=== PATIENT | male | born 1960 | race Caucasian/White ===

== ENCOUNTER 2017-01-03 12:58 | Inpatient (IN) | payer BC ==
--- NOTE | ~2017-01-03 | DS ---
Discharge Summary [facility] [place] [address] [place]. [address] NAME: NEW SERNA : 58 STATUS : DIS IN PAT#: [id number] AGE: 56 ADM/REG DATE : 01/03/17 MR#: [id number] REPORT SERV DATE: 01/07/17 DICTATED BY: ULICES RIVERA DATE: 01/06/17 REPORT STATUS : Draft TRANSCRIBED BY: MODL DATE: 01/06/17 ADMISSION DATE: 01/03/2017 DISCHARGE DATE: 01/06/2017 DISCHARGE DIAGNOSES: 1. Acute urinary retention, now with a Griffin catheter, to be followed up by Dr. Henderson in the outpatient setting. 2. Urinary tract infection with resistant Pseudomonas to fluoroquinolones. He will need a total of 14 days of IV Zosyn started on 01/03/2017. 3. Acute kidney injury due to obstructive uropathy, currently improving after placement of the Grififn catheter and hydration. 4. Hypertension, currently stable. 5. Hypothyroidism. 6. Generalized debility, will need rehab in the outpatient setting. 7. Type 2 diabetes mellitus, currently only using sliding scale. I would avoid use of metformin in this patient with acute renal failure. 8. Hyperlipidemia. 9. Diabetic neuropathy. 10.Obesity. 11.Neurogenic bladder. 12.History of prior cerebrovascular accident. 13.Degenerative joint disease with osteoarthritis. 14.Obesity. CONSULTANTS DURING THIS HOSPITALIZATION: 1. Keaton Rolon M.D. of Nephrology. 2. Pk Gold M.D. of Infectious Disease. INVASIVE PROCEDURES DONE DURING THIS HOSPITALIZATION: None. BRIEF HISTORY OF PRESENT ILLNESS: The patient is a 56-year-old gentleman with multiple comorbidities, followed by Dr. Tobias Rosario, presented to the hospital with weakness, fall, and difficulty walking, so he was admitted. For detailed history and physical exam, please see note dictated by Dr. Deja Lewis on 01/03/2017. HOSPITAL COURSE: After being admitted to the hospital, this patient was thought to have urinary tract infection, so he was started on broad-spectrum antibiotic, i.e., Zosyn. This patient had significant urinary retention and his creatinine was elevated up to 5.5. Nephrology was consulted. This was thought to be obstructive uropathy. A Griffin catheter was placed. Due to trauma, he has had some mild hematuria, but otherwise, he has had good urine output. He was given copious amounts of hydration and his creatinine today is down to 3.5 with improving BUN. Nephrology believes that this was just due to obstruction, so he should continue to improve. We discontinued his RAMU inhibitor and his metformin in light of renal failure. This patient had persistent urinary retention and this probably is the cause of recurrent urinary tract infection, so it is decided that we will leave the Griffin catheter in and the patient will be placed on Flomax and then follow up with Dr. Justus Henderson in Discharge Summary [place] [id number] [facility] [place]. [address] NAME: NEW SERNA : 58 STATUS : DIS IN PAT#: [id number] AGE: 56 ADM/REG DATE : 01/03/17 MR#: [id number] REPORT SERV DATE: 01/07/17 DICTATED BY: ULICES RIVERA DATE: 01/06/17 REPORT STATUS : Draft TRANSCRIBED BY: KEIKO DATE: 01/06/17 the outpatient setting. His urine culture has revealed Pseudomonas, that is resistant to fluoroquinolones and it is decided that he will need 14 days of IV Zosyn, which he will continue in the [facility] and rehab setting. A PICC line will be placed prior to that. This patient remained stable, otherwise, medically and is being discharged in stable condition to rehab. DISCHARGE DISPOSITION: To rehab. DISCHARGE ACTIVITY: Per facility. DISCHARGE DIET: Low sodium, 1800-calorie [employer] diet. DISCHARGE MEDICATIONS: Coreg 6.25 mg p.o. twice daily; gabapentin 300 mg three times daily; levothyroxine 50 mcg once daily; simvastatin 20 mg once daily; Zosyn 3.375 g IV q.12 extended release for a total of 14 days, to be stopped on 01/17/2017; sodium bicarb 650 mg p.o. twice daily; Flomax 0.4 mg p.o. once daily; and baclofen 10 mg p.o. three times daily. DISCHARGE FOLLOWUP: With Nephrology post rehab, with Dr. Caicedo post rehab, with Dr. Tobias Rosario post rehab. More than 35 minutes spent planning this patient's discharge, reconciling medications, arranging rehab and documenting this discharge. CHESTER/KEIKO Ulices Rivera M.D. / [id number] CC: Ulices Rivera M.D. [facility]
--- NOTE | ~2017-01-03 | CN ---
Consultation Report [facility] [address] [place]. [address] NAME: NEW SERNA : 58 STATUS : ADM IN PAT#: [id number] AGE: 56 ADM/REG DATE : 01/03/17 MR#: [id number] REPORT SERV DATE: 01/04/17 DICTATED BY: NIKI ROLON DATE: 01/04/17 REPORT STATUS : Draft TRANSCRIBED BY: MODL DATE: 01/04/17 DATE OF CONSULTATION: REASON FOR CONSULTATION: Elevation in BUN and creatinine. ASSESSMENT: Acute on chronic kidney disease in a patient with history of neurogenic bladder, noncompliance with straight catheterizations, and creatinine now presenting with a value of 4.9, down to 4.43 today with catheterization. Baseline creatinine had been in the mid to upper 3s during previous consultations last year. I suspect he has some component of acute injury related to his UTI and urinary retention from his noncompliance, however, he may also have progression of disease now with chronic obstructive uropathy that is progressively worsening. PLAN: 1. Continue IV fluids for another 24 hours to see if he has a volume depletion component with declining kidney function. 2. Renal diet. 3. Serial labs. 4. Obtain records from Dr. Henderson's office to see whether there are any issues as to why he should not be straight catheterizing himself at this present time. Because the patient is adamant, he was advised that he can use condom catheters rather than straight cath himself. HISTORY OF PRESENT ILLNESS: A 56-year-old male of Dr. Tobias Rosario with chronic kidney disease with neurogenic bladder, the etiology of which is unclear, with history of recurrent urinary retention, has been using a condom catheter instead of catheterizing himself. Apparently, he was told by Occupational Therapy that this was an option for him and he is admitted now with frequent falling and weakness of his lower extremities and he was also complaining of foul-smelling urine and obvious signs of urinary tract infection. He denied any fever or chills. Denied any flank pain or gross hematuria. No use of anti- inflammatories described. PAST MEDICAL HISTORY: Includes hypertension, chronic kidney disease; type 2 diabetes, non- insulin dependent, although he does not admit to it at this time; hypothyroidism; hyperlipidemia; obesity; previous documentation of bilateral hydronephrosis; degenerative joint disease; osteoarthritis. PAST SURGICAL HISTORY: Includes tonsillectomy and adenoidectomy and he has had a left open reduction and internal fixation. SOCIAL HISTORY: Denies tobacco, alcohol, medication or street drug usage. FAMILY HISTORY: Significant for cancer and diabetes. ALLERGIES: APPARENTLY TO CIPRO. Consultation Report [place] [address] [place]. [address] NAME: NEW SERNA : 58 STATUS : ADM IN [facility]#: [id number] AGE: 56 ADM/REG DATE : 01/03/17 MR#: [id number] REPORT SERV DATE: 01/04/17 DICTATED BY: NIKI ROLON DATE: 01/04/17 REPORT STATUS : Draft TRANSCRIBED BY: KEIKO DATE: 01/04/17 HOME MEDICATIONS: Include Glucophage, Ditropan, Zocor, baclofen, Coreg, Neurontin, levothyroxine, and Zestril. REVIEW OF SYSTEMS: As per the HPI. PHYSICAL EXAMINATION: GENERAL: He is an obese male, in no acute distress. He is appropriate to questions and oriented to time, place, and person. Affect not depressed. VITAL SIGNS: Blood pressure 132/68, heart rate in the 70s, afebrile. HEENT: Pupils are reacting to light. He is pale, but not jaundiced. Oral mucosa is dry. No pharyngitis. NECK: Supple. No thyromegaly. Trachea is central. No lymphadenopathy described. No masses. No thyromegaly. Air entry is equal bilaterally. CHEST: Clear to auscultation. [place] beats not displaced. S1, S2. No rub. ABDOMEN: Obese, distended. No hepatosplenomegaly. No flank or renal angle tenderness. No palpable masses. No guarding or rebound. Bowel sounds are present. : He has an indwelling Griffin catheter now, clear urine. PSYCHIATRIC: He is awake, alert, and oriented to time, place, and person. Affect is not depressed. MUSCULOSKELETAL: Muscle bulk and tone are appropriate for age. No acute arthritic findings noted. EXTREMITIES: There is no edema peripherally. Peripheral pulses are present in dorsalis pedis and posterior tibial, and no bruits are auscultated. IMAGING: CT scan of the abdomen and pelvis is pending. LABORATORY DATA: His lab work today shows sodium 143, potassium 3.8, chloride 112, CO2 of 21, BUN 65, creatinine 4.43, cholesterol is 218, albumin is 2.4. His hemoglobin is 11.1, hematocrit 32.8, white count 8.7, platelet count is 208,000. His urinalysis shows a cloudy urine, proteinuria, pyuria, and hematuria, and likelihood of an obvious UTI. MG/MODL Niki Rolon M.D. / [id number] CC: Milton Parkinson M.D. UNKNOWN
--- NOTE | ~2017-01-03 | CN ---
Consultation Report [facility] [address] [place]. [address] NAME: NEW SERNA : 58 STATUS : ADM IN PAT#: [id number] AGE: 56 ADM/REG DATE : 01/03/17 MR#: [id number] REPORT SERV DATE: 01/05/17 DICTATED BY: JAE TINAJERO DATE: 01/04/17 REPORT STATUS : Draft TRANSCRIBED BY: MODL DATE: 01/04/17 INFECTIOUS DISEASE CONSULT DATE OF CONSULTATION: REASON FOR CONSULT: Coagulase-negative Staph bacteremia. HISTORY OF PRESENT ILLNESS: A 56-year-old white male with history of obesity, diabetes, hypertension, prior CVA, neurogenic bladder with history of urine retention who came to the emergency room after falling several times. He does not have a reason for falling, he just says that he knows that his legs will give up. Sometimes he is able to walk around the house with a walker. He usually goes from one room to another and then either use a rolling chair in one room or just sits in one place in the other room. He fell at least once when he was sitting at the sink and that this last time when he tried to change directions. He states that he in the past tried to call his primary care provider, and he may not get an answer, so he decided to come to the emergency room. He reported no fever, no dysuria, no recent skin lesions, no new joint pains, no recent procedures or injections. The emergency room lab work showed a WBC of 8, INR 1.2, procalcitonin 0.3, creatinine was high at 4.4. Previously, in July of last year, the creatinine was 1.9. A CT scan was done and showed a gallstone, mild bilateral hydronephrosis, and a very thickened bladder wall. Apparently, these were seen also on the CT done about 10 months ago. A urinalysis showed protein, some glucose, more than 180 white blood cells, and moderate bacteria. He was given Rocephin in the ER, then was put on Zosyn. Today, two of the blood cultures drawn in the ER were reported positive for coagulase-negative Staph methicillin-resistant. On a question of the patient the way the blood cultures were drawn, he remembers that he had only one blood draw in the emergency room and that was done from the right antecubital area where a peripheral IV line was started, so the blood was drawn from that peripheral IV. He does not recall having a second draw in the emergency room. The urine was collected from the Griffin catheter. Here in the hospital, he has been afebrile. He does not appear to be in acute distress. Lab work shows a WBC of 8, hemoglobin 11, creatinine improved to 4.4 from 4.9. Liver enzymes within normal limits. Repeat urinalysis with 48 white blood cells, rare bacteria. PAST MEDICAL HISTORY: As I mentioned above plus history of stroke, left ankle ORIF in 2016, hypothyroidism, hyperlipidemia, tonsillectomy. SOCIAL HISTORY: He lives with somebody who was at home part of the day, so for about nine hours, he is by himself. FAMILY HISTORY: Diabetes and kidney disease. ALLERGIES: CIPRO CAUSED RASH. Consultation Report [address] [place]. [address] NAME: NEW SERNA : 58 STATUS : ADM IN [facility]#: [id number] AGE: 56 ADM/REG DATE : 01/03/17 MR#: [id number] REPORT SERV DATE: 01/05/17 DICTATED BY: JAE TINAJERO DATE: 01/04/17 REPORT STATUS : Draft TRANSCRIBED BY: KEIKO DATE: 01/04/17 MEDICATIONS ON ADMISSION: Baclofen, carvedilol, gabapentin, levothyroxine, lisinopril, metformin, oxybutynin, simvastatin. PHYSICAL EXAMINATION: GENERAL: He is alert, awake. He has poor dentition with broken teeth. LUNGS: Seem clear to auscultation. HEART: Very distant sounds. Regular rhythm. ABDOMEN: Obese, nontender to palpation. 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 He is able to raise the leg against gravity and he has good strength in the bed plane. He is able to turn in bed by himself. Left ankle without inflammatory signs. ASSESSMENT AND PLAN: 1. Coagulase-negative Staph bacteremia. 2. Chronic mild bilateral hydronephrosis and very thickened bladder wall which apparently were seen on a CT scan done 10 months ago. No renal stones were described. 3. Acute renal insufficiency with probably some chronic kidney insufficiency. 4. History of stroke, diabetes, chronic kidney disease. I do not see an explanation for Coagulase-negative Staph bacteremia and I suspect they are contaminant based on the way the blood was drawn in the emergency room. So, I think vancomycin can be stopped. Blood cultures could be repeated as needed depending on his condition. In regard to the possible UTI, that is possible given likely urine retention. This is suggested by the thickened bladder wall, although he does not appear to have symptoms. He uses a condom catheter at nighttime, and during the day, he uses a urinal. He does not perceive a problem voiding. Suggest discussing with his urologist, Dr. Henderson, the CT scan findings and need for bladder catheterization plus possible need for cystoscopy. In regard to the falls, again, he had a history of stroke and left ankle ORIF. He does not complain of leg pain, but he appears to have some weakness and he might be debilitated. ID follow up as needed. I discussed the above with the patient's father and discussed with [place], nurse practitioner. PC/KEIKO Jae Tinajero M.D. / [id number] CC: Consultation Report [address] [address] NAME: NEW SERNA : 58 STATUS : ADM IN [facility]#: [id number] AGE: 56 ADM/REG DATE : 01/03/17 MR#: [id number] REPORT SERV DATE: 01/05/17 DICTATED BY: JAE TINAJERO DATE: 01/04/17 REPORT STATUS : Draft TRANSCRIBED BY: KEIKO DATE: 01/04/17 Milton Parkinson M.D.
--- NOTE | ~2017-01-03 | HP ---
History And Physical [place] [address] [place]. [address] NAME: NEW SERNA : 58 STATUS : ADM IN [facility]#: [id number] AGE: 56 ADM/REG DATE : 01/03/17 MR#: [id number] REPORT SERV DATE: 01/03/17 DICTATED BY: DEJA BUSTAMANTE DATE: 01/03/17 REPORT STATUS : Draft TRANSCRIBED BY: MODL DATE: 01/03/17 DATE OF ADMISSION: 01/03/2017 CHIEF COMPLAINT: Weakness, falls, and difficulties walking since Wednesday. HISTORY OF PRESENT ILLNESS: This is a 56 years old gentleman, patient of Dr. Tobias Rosario. He has a past medical history significant for chronic kidney disease with neurogenic bladder and urinary retention. Likely secondary to that, he has a condom cath. The patient of Dr. Henderson, for Urology. He does not recall the name of his renal physician. History of hypertension; diabetes type 2, noninsulin dependent; obesity; likely obstructive sleep apnea; history of stroke. He has had a fall last year and that has resulted in left ankle fracture with fixation. Since then, he has been using mostly a cane, but also walker, and he has recurrent falls since then, but he always is able to walk. Over the last couple of months though, the patient has had more falls than usual and he fell actually on Wednesday and since then, had been having extremely hard difficulties walking even with his walker. The patient complained of some foul smelling urine. He did not have any presyncopal or syncopal episodes. No chest pain. No shortness of breath. No PND or orthopnea. He has not had any nausea or vomiting. No diarrhea or constipation. He does have urinary incontinence, for which he has a condom cath. He has been evaluated in the emergency room. Hospitalist Service, after evaluation has been asked for admission for further workup and treatment. PAST MEDICAL HISTORY: Significant for hypertension; chronic kidney disease; diabetes type 2, noninsulin dependent; hypothyroidism; hyperlipidemia; diabetic neuropathy. Also obesity, history of urinary retention with bilateral hydronephrosis secondary to neurogenic bladder. Also, history of prior CVA, history of degenerative joint disease, osteoarthritis, and obesity. PAST SURGICAL HISTORY: Include tonsillectomy, adenoidectomy, and he has left ORIF. SOCIAL HISTORY: Denies tobacco, he quit in 2008. No alcohol. No IV drugs. FAMILY HISTORY: Significant for cancer and diabetes. ALLERGIES: HE IS ALLERGIC TO CIPRO. MEDICATIONS: Listed at home include: Baclofen, Coreg, Neurontin, levothyroxine, Zestril, Glucophage, Ditropan, and Zocor. REVIEW OF SYSTEMS: A 14-point review of systems has been obtained and pertinent positive has been listed into the history of present illness. Otherwise, negative except those underlying above. PHYSICAL EXAMINATION: VITAL SIGNS: Currently, the patient is afebrile. Blood pressure 132/68, heart rate 76, respiratory rate 16, and saturating 98% on room air. GENERAL: He is a very pleasant, well-developed, well-nourished gentleman, in no acute History And Physical [address] [address] NAME: NEW SERNA : 58 STATUS : ADM IN [facility]#: [id number] AGE: 56 ADM/REG DATE : 01/03/17 MR#: [id number] REPORT SERV DATE: 01/03/17 DICTATED BY: DEJA BUSTAMANTE DATE: 01/03/17 REPORT STATUS : Draft TRANSCRIBED BY: KEIKO DATE: 01/03/17 distress. He is alert and oriented x3. He has generalized weakness, but mostly bilateral lower extremities. Cranial nerves are intact. HEENT: Show pupils equal, round, and reactive to light. Extraocular movements intact. NECK: No JVD. No lymphadenopathy. No thyromegaly appreciated. CHEST: Eval shows bilateral air entry. Clear anteroposterior. No wheezes, crackles, or rhonchi appreciated. CARDIOVASCULAR: He has regular rate and rhythm. S1, S2 positive. No S3, no S4. No murmurs, rubs, or gallops appreciated. ABDOMEN: Soft, with positive bowel sounds. Nontender. No guarding. No rebound. EXTREMITIES: No clubbing or cyanosis. Trace edema. NEUROLOGIC: The patient is alert and oriented x3. He has generalized weakness, mostly bilateral lower extremities. Cranial nerves are intact. Sensory is intact. LABORATORY DATA: Labs from today performed in the emergency room include, sodium 141, potassium 3.9, chloride 107, CO2 of 28, BUN 68, creatinine 499, glucose is 129. His troponin I is less than 0.02. His white count is 8.3, hemoglobin 12.5, hematocrit 37, and platelets are 223. INR is 1.2. His UA has been positive. His blood cultures currently are pending. His urine cultures are pending. ASSESSMENT: This is a very pleasant 56 years old gentleman with weakness and recurrent falls. 1. Acute on chronic kidney disease. 2. Urinary tract infection. 3. History of urinary retention with prior bilateral hydronephrosis. 4. History of stroke. 5. Hypertension. 6. Hypothyroidism. 7. History of left ankle fracture. 8. Recurrent falls with weakness. PLAN: 1. The patient is going to be admitted to Hospitalist Service. Regarding his acute on chronic kidney disease, we are going to place a Griffin catheter. We are going to hold his metformin and RAMU inhibitor. Vigorous IV hydration. Treat his urinary tract infection. Get a CAT scan of the abdomen and pelvis without contrast and consult Renal for further recommendation. 2. Urinary tract infection. We are going to check urine cultures, as well as we are going to place the patient on Zosyn. 3. History of hypertension. We are going to continue his beta-darian, hold Zestril and provide p.r.n. hydralazine as needed. 4. Diabetes type 2, noninsulin dependent. Diet check and hemoglobin A1c, and also Accu- Cheks before meal and at bedtime. Sliding scale insulin subcutaneously, level 1. 5. History of hypothyroidism. Continue his home medications and also check a TSH and a free T4. 6. Hyperlipidemia. Continue his home medication. 7. Peripheral neuropathy. We will continue his home medications. 8. History of recurrent falls with weakness and deconditioning. We are going to get a PT History And Physical [address] [address] NAME: NEW SERNA : 58 STATUS : ADM IN PAT#: [id number] AGE: 56 ADM/REG DATE : 01/03/17 MR#: [id number] REPORT SERV DATE: 01/03/17 DICTATED BY: DEJA BUSTAMANTE DATE: 01/03/17 REPORT STATUS : Draft TRANSCRIBED BY: MODL DATE: 01/03/17 eval and treat as well. We will provide reasonable pain and nausea control as well as GI and DVT prophylaxis. 9. Further workup and recommendation pending above. It is worthwhile to note that the patient is going to be followed by Dr. Milton Parkinson. CF/MODL Deja Bustamante M.D. / [id number] CC: Milton Parkinson M.D.
[~2017-01-03 12:58] MED LIST: ASAEC PO; COREG6 PO; DITRO5 PO; DSS PO; FISH-EPA1000 MG PO; LEVOTHYROXIN50 MCG PO; LIOR10 PO; LOVENOX40 SC; NEUR300 PO; PROBIOTIC PO; ROCEPH IM; VITAMIN D31000 UNIT PO
[2017-01-03 14:04] LABS: BASOPHILS 0.5 %; BASOPHILS ABSOLUTE 0.04 10/3/uL (0.0-0.16); EOSINOPHILS ABSOLUTE 0.25 10/3/uL (0.0-0.53); HEMOGLOBIN 12.5 g/dL (13.6-17.8); IMMATURE GRANULOCYTES 0.1 %; IMMATURE GRANULOCYTES ABSOLUTE 0.01 10/3/uL (0.0-0.11); LYMPHOCYTES 11.1 %; LYMPHOCYTES ABSOLUTE 0.92 10/3/uL (0.67-4.30); MEAN CORPUS HGB CONC 33.8 g/dL (32.0-36.0); MEAN CORPUSCULAR HEMOGLOB 28.8 pg (26.0-34.0); MEAN CORPUSCULAR VOLUME 85.3 fL (80-100); MEAN PLATELET VOLUME 8.8 fL (9.2-13.0); MONOCYTES ABSOLUTE 0.41 10/3/uL (0.21-1.20); NEUTROPHILS 80.3 %; NEUTROPHILS ABSOLUTE 6.63 10/3/uL (2.02-8.40); PLATELET COUNT 223 10/3/uL (150-400); RBC DISTRIBUTION WIDTH 13.9 % (12.0-16.0); RED CELL COUNT 4.34 10/6/uL (4.7-6.1); WHITE BLOOD CELLS 8.3 10/3/uL (4.5-10.5)
[2017-01-03 14:08] LABS: MANUAL DIFF NO %
[2017-01-03 14:14] LABS: INTERNATIONAL NORMAL RATI 1.2 UNITS (-); PARTIAL THROMBO TIME 34.1 SEC (22.5-37.2); PROTIME (NOT ORD) 15.4 SEC (12.0-14.5)
[2017-01-03 14:15] LABS: ASCORBIC ACID (UR NOT ORDER) NEG (NEG); BILIRUBIN, URINE NEGATIVE (NEG); KETONE, URINE NEGATIVE (NEG); LEUKOCYTE ESTERASE(NOT OR LARGE (NEG); NITRITE (URINE) NEG (NEG); WBC (NOT ORDERED) (RFLEX) > 182 (0-5)
[2017-01-03 14:18] LABS: BUN (BLOOD UREA NITROGEN) 68 MG/DL (6-23); CALCIUM, SERUM 9.3 MG/DL (8.5-10.4); CHLORIDE, SERUM 107 MMOL/L (96-112); CO2 (CARBON DIOXIDE) 24 MMOL/L (24-34); CREATININE 4.99 MG/DL (0.70-1.30); GFR AFRICAN AMERICAN 14 ML/MIN (>=60); GFR NON AFRICAN AMERICAN 12 ML/MIN (>=60); GLUCOSE, SERUM 129 MG/DL (60-99); POTASSIUM, SERUM 3.9 MMOL/L (3.5-5.3); SODIUM, SERUM 141 MMOL/L (135-148)
[2017-01-03 14:20] LABS: CHEST PAIN PROFILE TAT 0 Hrs 20 Mins; TROPONIN I <0.02 NG/ML (<0.05)
[2017-01-03] MEDS ORDERED: ZESTRIL5 MG PO (16:16)
[2017-01-03] MEDS ORDERED: GLUCOPHAGE1000 MG PO (16:16)
[2017-01-03] MEDS ORDERED: COREG6 PO (16:16)
[2017-01-03] MEDS ORDERED: LEVOTHYROXIN50 MCG PO (16:16)
[2017-01-03] MEDS ORDERED: ZOCOR20 PO (16:17)
[2017-01-03] MEDS ORDERED: LIOR10 PO (16:17)
[2017-01-03] MEDS ORDERED: NEUR300 PO (16:17)
[2017-01-03] MEDS ORDERED: DITRO5 PO (16:17)
[2017-01-03 23:17] LABS: ALBUMIN 2.8 G/DL (3.5-5.0); DIRECT BILIRUBIN 0.1 MG/DL (0.0-0.4); FREE T4 1.11 NG/DL (0.76-1.46); INDIRECT BILIRUBIN(NOT ORDER) 0.2 MG/DL (0.1-0.9); SGOT(AST) 10 U/L (5-40); SGPT(ALT) 16 U/L (5-65); TOTAL BILIRUBIN 0.3 MG/DL (0-1.2); TOTAL PROTEIN 7.9 G/DL (6.0-8.5); TROPONIN I <0.02 NG/ML (<0.05)
[2017-01-03 23:18] LABS: ALKALINE PHOSPHATASE 74 U/L (45-117); PHOSPHORUS, SERUM 3.8 MG/DL (2.5-4.5)
[2017-01-03 23:18] LABS: B NATRIURETIC PEPTIDE (BNP) 12.9 PG/ML (< 100.0)
[2017-01-04 00:29] LABS: PROCALCITONIN 0.32 ng/mL (<0.5)
[2017-01-04 01:09] LABS: INTERNATIONAL NORMAL RATI 1.2 UNITS (-); PARTIAL THROMBO TIME 31.4 SEC (22.5-37.2); PROTIME (NOT ORD) 15.3 SEC (12.0-14.5)
[2017-01-04 04:56] LABS: ASCORBIC ACID (UR NOT ORDER) NEG (NEG); BILIRUBIN, URINE NEGATIVE (NEG); KETONE, URINE NEGATIVE (NEG); LEUKOCYTE ESTERASE(NOT OR LARGE (NEG); WBC (NOT ORDERED) (RFLEX) 48 (0-5)
[2017-01-04 05:56] LABS: BASOPHILS 0.3 %; BASOPHILS ABSOLUTE 0.03 10/3/uL (0.0-0.16); EOSINOPHILS 4.4 %; EOSINOPHILS ABSOLUTE 0.38 10/3/uL (0.0-0.53); HEMATOCRIT 32.8 % (40.0-51.0); HEMOGLOBIN 11.1 g/dL (13.6-17.8); IMMATURE GRANULOCYTES 0.2 %; IMMATURE GRANULOCYTES ABSOLUTE 0.02 10/3/uL (0.0-0.11); LYMPHOCYTES 12.7 %; MANUAL DIFF NO %; MEAN CORPUS HGB CONC 33.8 g/dL (32.0-36.0); MEAN CORPUSCULAR HEMOGLOB 28.6 pg (26.0-34.0); MEAN CORPUSCULAR VOLUME 84.5 fL (80-100); MONOCYTES 7.2 %; MONOCYTES ABSOLUTE 0.63 10/3/uL (0.21-1.20); NEUTROPHILS 75.2 %; NEUTROPHILS ABSOLUTE 6.53 10/3/uL (2.02-8.40); PLATELET COUNT 208 10/3/uL (150-400); RBC DISTRIBUTION WIDTH 14.1 % (12.0-16.0); RED CELL COUNT 3.88 10/6/uL (4.7-6.1); WHITE BLOOD CELLS 8.7 10/3/uL (4.5-10.5)
[2017-01-04 06:50] LABS: CREATININE, URINE 33.5 MG/DL
[2017-01-04 07:08] LABS: GLYCOHEMOGLOBIN (HbA1c) 5.8 % (4.7-6.1)
[2017-01-04 07:25] LABS: A/G RATIO 0.5 (0.7-1.9); ALBUMIN 2.4 G/DL (3.5-5.0); ALKALINE PHOSPHATASE 71 U/L (45-117); BUN (BLOOD UREA NITROGEN) 65 MG/DL (6-23); CALCIUM, SERUM 8.5 MG/DL (8.5-10.4); CHLORIDE, SERUM 112 MMOL/L (96-112); CO2 (CARBON DIOXIDE) 21 MMOL/L (24-34); GLOBULIN 4.9 G/DL (2.5-4.1); PHOSPHORUS, SERUM 3.8 MG/DL (2.5-4.5); POTASSIUM, SERUM 3.8 MMOL/L (3.5-5.3); SGOT(AST) 10 U/L (5-40); SGPT(ALT) 11 U/L (5-65); SODIUM, SERUM 143 MMOL/L (135-148); TOTAL BILIRUBIN 0.3 MG/DL (0-1.2); TOTAL PROTEIN 7.3 G/DL (6.0-8.5); TROPONIN I <0.02 NG/ML (<0.05)
[2017-01-04 07:26] LABS: CREATININE 4.43 MG/DL (0.70-1.30); GFR AFRICAN AMERICAN 16 ML/MIN (>=60); GFR NON AFRICAN AMERICAN 14 ML/MIN (>=60); GLUCOSE, SERUM 97 MG/DL (60-99)
[2017-01-05 05:35] LABS: BASOPHILS 0.4 %; BASOPHILS ABSOLUTE 0.03 10/3/uL (0.0-0.16); EOSINOPHILS 5.3 %; EOSINOPHILS ABSOLUTE 0.43 10/3/uL (0.0-0.53); HEMATOCRIT 34.2 % (40.0-51.0); HEMOGLOBIN 11.4 g/dL (13.6-17.8); IMMATURE GRANULOCYTES 0.2 %; IMMATURE GRANULOCYTES ABSOLUTE 0.02 10/3/uL (0.0-0.11); LYMPHOCYTES ABSOLUTE 1.22 10/3/uL (0.67-4.30); MEAN CORPUS HGB CONC 33.3 g/dL (32.0-36.0); MEAN CORPUSCULAR HEMOGLOB 28.5 pg (26.0-34.0); MEAN CORPUSCULAR VOLUME 85.5 fL (80-100); MEAN PLATELET VOLUME 8.9 fL (9.2-13.0); MONOCYTES 5.7 %; MONOCYTES ABSOLUTE 0.46 10/3/uL (0.21-1.20); NEUTROPHILS 73.4 %; NEUTROPHILS ABSOLUTE 5.96 10/3/uL (2.02-8.40); PLATELET COUNT 216 10/3/uL (150-400); RBC DISTRIBUTION WIDTH 14.1 % (12.0-16.0); WHITE BLOOD CELLS 8.1 10/3/uL (4.5-10.5)
[2017-01-05 05:36] LABS: MANUAL DIFF NO %
[2017-01-05 05:44] LABS: ALBUMIN 2.4 G/DL (3.5-5.0); CALCIUM, SERUM 8.6 MG/DL (8.5-10.4); CHLORIDE, SERUM 110 MMOL/L (96-112); CO2 (CARBON DIOXIDE) 24 MMOL/L (24-34); CREATININE 4.19 MG/DL (0.70-1.30); GFR AFRICAN AMERICAN 17 ML/MIN (>=60); GFR NON AFRICAN AMERICAN 15 ML/MIN (>=60); GLUCOSE, SERUM 104 MG/DL (60-99); PHOSPHORUS, SERUM 4.1 MG/DL (2.5-4.5); POTASSIUM, SERUM 3.8 MMOL/L (3.5-5.3); SODIUM, SERUM 143 MMOL/L (135-148)
[2017-01-05 05:45] LABS: BUN (BLOOD UREA NITROGEN) 57 MG/DL (6-23)
[2017-01-06 07:26] LABS: HEMATOCRIT 33.8 % (40.0-51.0); HEMOGLOBIN 11.4 g/dL (13.6-17.8); MEAN CORPUS HGB CONC 33.7 g/dL (32.0-36.0); MEAN CORPUSCULAR HEMOGLOB 28.5 pg (26.0-34.0); MEAN CORPUSCULAR VOLUME 84.5 fL (80-100); MEAN PLATELET VOLUME 8.7 fL (9.2-13.0); PLATELET COUNT 203 10/3/uL (150-400); RBC DISTRIBUTION WIDTH 13.6 % (12.0-16.0); WHITE BLOOD CELLS 7.7 10/3/uL (4.5-10.5)
[2017-01-06 07:33] LABS: MANUAL DIFF YES %
[2017-01-06 07:43] LABS: ALBUMIN 2.4 G/DL (3.5-5.0); CALCIUM, SERUM 8.5 MG/DL (8.5-10.4); CHLORIDE, SERUM 110 MMOL/L (96-112); GFR AFRICAN AMERICAN 21 ML/MIN (>=60); GFR NON AFRICAN AMERICAN 18 ML/MIN (>=60); GLUCOSE, SERUM 108 MG/DL (60-99); PHOSPHORUS, SERUM 3.9 MG/DL (2.5-4.5); POTASSIUM, SERUM 3.7 MMOL/L (3.5-5.3); SODIUM, SERUM 139 MMOL/L (135-148)
[2017-01-06 07:44] LABS: BUN (BLOOD UREA NITROGEN) 42 MG/DL (6-23); CO2 (CARBON DIOXIDE) 19 MMOL/L (24-34); CREATININE 3.54 MG/DL (0.70-1.30)
[2017-01-06 08:41] LABS: BASOPHILS 2 %; BASOPHILS ABSOLUTE (CALC) 0.15 10/3/uL (0.0-0.16); EOSINOPHILS 9 %; EOSINOPHILS ABSOLUTE (CALC) 0.69 10/3/uL (0.0-0.53); LYMPHOCYTES 14 %; LYMPHOCYTES ABSOLUTE (CALC) 1.08 10/3/uL (0.67-4.30); MONOCYTES 4 %; MONOCYTES ABSOLUTE (CALC) 0.31 10/3/uL (0.21-1.20); NEUTROPHILS ABSOLUTE (CALC) 5.47 10/3/uL (2.02-8.40); PLATELET ESTIMATE ADQ (ADEQUATE); RBC MORPHOLOGY NORM (NORMAL); SEGMENTED NEUTROPHIL (0) 71 %; TOTAL NUCLEATED CELLS 100
== END 2017-01-06 18:22 | DRG 683 ==
LOC: ER 12:58 → 4SO 17:00
PROVIDERS: Internal Medicine; Internal Medicine Nephrology; Nurse Practitioner Family
PROC: 02HV33Z Insertion of Infusion Device into Superior Vena Cava, Percutaneous Approach (ICD-10-PCS; principal; 2017-01-06)
PROC: 4A02X4A Measurement of Cardiac Electrical Activity, Guidance, External Approach (ICD-10-PCS; principal; 2017-01-06)
DX: N17.9 Acute kidney failure, unspecified (principal); N39.0 Urinary tract infection, site not specified; E11.22 Type 2 diabetes mellitus with diabetic chronic kidney disease; E11.42 Type 2 diabetes mellitus with diabetic polyneuropathy; N13.8 Other obstructive and reflux uropathy; Z68.41 Body mass index [BMI] 40.0-44.9, adult; N31.8 Other neuromuscular dysfunction of bladder; R33.8 Other retention of urine; I12.9 Hypertensive chronic kidney disease with stage 1 through stage 4 chronic kidney disease, or unspecified chronic kidney disease; N18.9 Chronic kidney disease, unspecified; E66.9 Obesity, unspecified; G47.33 Obstructive sleep apnea (adult) (pediatric); Z86.73 Personal history of transient ischemic attack (TIA), and cerebral infarction without residual deficits; Z91.81 History of falling; R32 Unspecified urinary incontinence; M19.90 Unspecified osteoarthritis, unspecified site; Z88.1 Allergy status to other antibiotic agents; E03.9 Hypothyroidism, unspecified; R53.1 Weakness; Z87.81 Personal history of (healed) traumatic fracture; R53.81 Other malaise; Z91.19 Patient's noncompliance with other medical treatment and regimen; B96.5 Pseudomonas (aeruginosa) (mallei) (pseudomallei) as the cause of diseases classified elsewhere; Z16.23 Resistance to quinolones and fluoroquinolones
CPT/HCPCS: 36569; 71010; 73610-LT; 74176; 80048; 80053; 80069; 80076; 81001; 82140; 82570; 82962; 83036; 83605; 83615; 83690; 83735; 83880; 83935; 84100; 84145; 84300; 84439; 84443; 84484; 85025; 85379; 85610; 85730; 87040; 87077; 87086; 87150; 87186; 93005; 96374; 96375; 97162-GP; 97166-GO; 97530-GP; 99285; A9270-GY; C1751; J2543; J3370